=== PATIENT | male | born 1945 | race Caucasian/White ===

== ENCOUNTER 2019-01-24 10:28 | Emergency (ER) | payer OTHER ==
[2019-01-24] MEDS ORDERED: Bupivacaine 0.5% 10 ML SDV INJECT ONE (11:30)
[2019-01-24] MEDS ORDERED: Triamcinolone Acetonide 40 MG/ML 1 ML MDV INJECT ONE (11:30)
--- NOTE | 2019-01-24 11:40 | EDM.PDOC ---
ED HPI GENERAL MEDICAL PROBLEM - General Chief Complaint: Lower Extremity Injury/Pain Stated Complaint: BACK & HIP PAIN RIGHT SIDE Time Seen by Provider: 01/24/19 11:00 Source of Information: Reports: Patient, Family History Limitations: Reports: No Limitations - History of Present Illness INITIAL COMMENTS - FREE TEXT/NARRATIVE: 73-year-old male with right hip and right buttock pain for the past 7-10 days. He was seen by orthopedics in the clinic, an x-ray taken in an order for physical therapy done which she has not started. He is also on a course of Medrol Dosepak. This has helped in the past but is not helping, this morning his had to help him get his pants on and he is miserable. Onset: Gradual Duration: Day(s): (7-10 days) Location: Reports: Lower Extremity, Right Quality: Reports: Sharp, Stabbing Worsens with: Reports: Other (Much worse with movement, lying on his right side or getting up from a sitting position), Movement Right Hip Pain Score (Numeric/FACES): 5 - Related Data Allergies Allergy/AdvReac Type Severity Reaction Status Date / Time No Known Allergies Allergy Verified 01/24/19 10:54 Home Meds: Home Meds Levothyroxine 75 mcg PO ACBREAKFAST 01/24/19 [History] methylPREDNISolone [Methylprednisolone] 16 mg PO DAILY 01/24/19 [History] traZODone 150 mg PO BEDTIME 01/24/19 [History] Past Medical History HEENT History: Reports: Impaired Vision Gastrointestinal History: Reports: None Musculoskeletal History: Reports: Arthritis Endocrine/Metabolic History: Reports: Hypothyroidism, Obesity/BMI 30+ - Past Surgical History Head Surgeries/Procedures: Reports: None HEENT Surgical History: Reports: Cataract Surgery GI Surgical History: Reports: Cholecystectomy Endocrine Surgical History: Reports: None Musculoskeletal Surgical History: Reports: Knee Replacement Dermatological Surgical History: Reports: None Social & Family History - Tobacco Use Smoking Status *Q: Never Smoker Second Hand Smoke Exposure: No - Caffeine Use Caffeine Use: Reports: Coffee, Soda - Alcohol Use Days Per Week of Alcohol Use: 3 Number of Drinks Per Day: 2 Total Drinks Per Week: 6 - Recreational Drug Use Recreational Drug Use: No Review of Systems - Review of Systems Review Of Systems: See Below Constitutional: Denies: Fever Respiratory: Reports: No Symptoms Cardiovascular: Reports: No Symptoms GI/Abdominal: Reports: No Symptoms Skin: Denies: Rash, Erythema Neurological: Denies: Paresthesia ED EXAM, GENERAL - Physical Exam Exam: See Below Exam Limited By: No Limitations General Appearance: Alert, No Apparent Distress, Other (Very uncomfortable with movement, unable to sit down) Respiratory/Chest: No Respiratory Distress, Lungs Clear Extremities: Other (Extremely tender to palpation over the greater trochanteric area and into the distal buttock just proximal to the greater trochanteric bursa ) Course - Vital Signs Last Recorded V/S: Last Vital Signs Temp 97.6 F 01/24/19 10:55 Pulse 67 01/24/19 10:55 Resp 17 01/24/19 10:55 BP 155/77 H 01/24/19 10:55 Pulse Ox 99 01/24/19 10:55 - Orders/Labs/Meds Meds: Medications Discontinued Medications Generic Name Dose Route Start Last Admin Trade Name Marty PRN Reason Stop Dose Admin Bupivacaine HCl 10 ml 01/24/19 11:30 01/24/19 11:21 Sensorcaine-Mpf 0.5% INJECT 01/24/19 11:31 10 ml ONETIME ONE Administration Triamcinolone Acetonide 40 mg 01/24/19 11:30 01/24/19 11:21 Kenalog-40 INJECT 01/24/19 11:31 40 mg ONETIME ONE Administration - Re-Assessments/Exams Free Text/Narrative Re-Assessment/Exam: 01/24/19 11:37 The area was sterilized with Betadine, and 10 mL of 0.5% Marcaine and 40 mg of Kenalog was infiltrated into the bursa and just proximal to the bursa. His symptoms were markedly improved, he was able to stand move sit with minimal symptoms. He was given 10 hydrocodone for extra pain control as he will have a window of pain after the numbing medicine wears off, and if there is not significant relief from the steroid over the next several days he will recheck with orthopedics and go to physical therapy on Friday as planned. Departure - Departure Time of Disposition: 11:45 Disposition: Home, Self-Care 01 Clinical Impression: Trochanteric bursitis of right hip - Discharge Information Instructions: Trochanteric Bursitis Referrals: PCP,None [Primary Care Provider] - Forms: ED Department Discharge Care Plan Goals: Continue with steroids, activity as tolerated, and recheck in 3-4 days if not improving satisfactorily or keep your physical therapy appointment. Hydrocodone for breakthrough pain if needed.
== END 2019-01-24 11:45 | disposition home or self-care (01) ==
LOC: JP.ED 10:28
DX: M70.61 Trochanteric bursitis, right hip (principal); E03.9 Hypothyroidism, unspecified; M19.90 Unspecified osteoarthritis, unspecified site; E66.9 Obesity, unspecified; Z90.49 Acquired absence of other specified parts of digestive tract; Z98.49 Cataract extraction status, unspecified eye; Z79.899 Other long term (current) drug therapy
CPT/HCPCS: 20610; 99283; J3301; J3490

== ENCOUNTER 2020-05-30 12:14 | Emergency (ER) | payer OTHER ==
--- NOTE | 2020-05-30 14:29 | EDM.PDOC ---
ED HPI GENERAL MEDICAL PROBLEM - General Chief Complaint: Lower Extremity Injury/Pain Stated Complaint: CAST TOO TIGHT, SPLIT CAST Time Seen by Provider: 05/30/20 14:00 Source of Information: Reports: Patient, Family History Limitations: Reports: No Limitations - History of Present Illness INITIAL COMMENTS - FREE TEXT/NARRATIVE: 75-year-old male has a cast in his lower left extremity since surgery last Friday. It is making him anxious and he thinks it is too tight. They called the surgeon and he was okay with his cast being loose and slipped slightly. He can feel his toes, he just feels very anxious and claustrophobic with it on. Onset: Sudden (Woke up after surgery on Friday with the cast on, has been having problems ever since) - Related Data Allergies Allergy/AdvReac Type Severity Reaction Status Date / Time No Known Allergies Allergy Verified 05/30/20 13:19 Home Meds: Home Meds Levothyroxine 75 mcg PO ACBREAKFAST 01/24/19 [History] traZODone 150 mg PO BEDTIME 01/24/19 [History] Acetaminophen [Tylenol Extra Strength] 1,000 mg PO ASDIRECTED 05/30/20 [History] Celecoxib [CeleBREX] 50 mg PO BID 05/30/20 [History] LORazepam [Ativan] 0.5 mg PO ASDIRECTED 05/30/20 [History] oxyCODONE 1 tab PO ASDIRECTED 05/30/20 [History] Past Medical History HEENT History: Reports: Impaired Vision Gastrointestinal History: Reports: None Musculoskeletal History: Reports: Arthritis Endocrine/Metabolic History: Reports: Hypothyroidism, Obesity/BMI 30+ - Past Surgical History Head Surgeries/Procedures: Reports: None HEENT Surgical History: Reports: Cataract Surgery GI Surgical History: Reports: Cholecystectomy Endocrine Surgical History: Reports: None Musculoskeletal Surgical History: Reports: Knee Replacement, Other (See Below) Other Musculoskeletal Surgeries/Procedures:: left ankle surgery Dermatological Surgical History: Reports: None Social & Family History - Tobacco Use Tobacco Use Status *Q: Never Tobacco User Second Hand Smoke Exposure: No - Caffeine Use Caffeine Use: Reports: Coffee, Soda - Recreational Drug Use Recreational Drug Use: No Review of Systems - Review of Systems Review Of Systems: See Below Constitutional: Denies: Fever Respiratory: Denies: Shortness of Breath Cardiovascular: Denies: Chest Pain Musculoskeletal: Denies: Neck Pain Skin: Denies: Bruising Neurological: Denies: Dizziness Psychiatric: Reports: Anxiety ED EXAM, GENERAL - Physical Exam Exam: See Below Exam Limited By: No Limitations General Appearance: Alert, No Apparent Distress, Anxious Respiratory/Chest: No Respiratory Distress, Lungs Clear Cardiovascular: Regular Rate, Rhythm Extremities: Other (There is a cast on the left lower extremity from the base of the toes to just under the knee. There is some blood soaked into the heel of the cast but according to the family this was present since his discharge. Toes have good capillary refill and color) Skin Exam: Warm, Dry Course - Vital Signs Last Recorded V/S: Last Vital Signs Temp 97.9 F 05/30/20 13:21 Pulse 72 05/30/20 13:21 Resp 16 05/30/20 13:21 BP 146/83 H 05/30/20 13:21 Pulse Ox 99 05/30/20 13:21 - Re-Assessments/Exams Free Text/Narrative Re-Assessment/Exam: 05/30/20 14:27 Using a cast cutter a split was made on each side of the cast and it was loosened about a quarter of an inch. 2 Roddy wraps were wrapped around the cast, he did think it felt better. He was given 6 hydrocodone's for pain control, she will not give him the oxycodone because it makes him itch too much. Departure - Departure Time of Disposition: 14:33 Disposition: Home, Self-Care 01 Clinical Impression: Problem with fiberglass cast - Discharge Information Instructions: Cast or Splint Care, Adult, [id number] Referrals: PCP,None [Primary Care Provider] - Forms: ED Department Discharge Care Plan Goals: Recheck as scheduled, return sooner if continued problems with the cast. Elevating the leg may be helpful. Sepsis Event Note (ED) - Evaluation Sepsis Screening Result: No Definite Risk - Focused Exam Vital Signs: Vital Signs Temp Pulse Resp BP Pulse Ox 05/30/20 13:21 97.9 F 72 16 146/83 H 99 05/30/20 13:03 97.9 F 72 16 146/83 H 99
== END 2020-05-30 14:33 | disposition home or self-care (01) ==
LOC: JP.ED 12:14
DX: Z46.89 Encounter for fitting and adjustment of other specified devices (principal); E03.9 Hypothyroidism, unspecified; E66.9 Obesity, unspecified; Z68.28 Body mass index [BMI] 28.0-28.9, adult
CPT/HCPCS: 99282

== ENCOUNTER 2020-08-30 19:31 | Emergency (ER) | payer OTHER ==
--- NOTE | 2020-08-30 21:07 | EDM.PDOC ---
ED HPI GENERAL MEDICAL PROBLEM - General Chief Complaint: General Stated Complaint: INFECTION ON HIS LEFT FOOT Time Seen by Provider: 08/30/20 20:55 Source of Information: Reports: Patient, Family, RN Notes Reviewed History Limitations: Reports: No Limitations - History of Present Illness INITIAL COMMENTS - FREE TEXT/NARRATIVE: 75-year-old gentleman presents emergency department today for evaluation of his chronic wound. He has been dealing with a chronic wound on his left foot both heel and dorsal surface of the foot for approximately 3 months has gone through multiple surgeries wound VAC care PICC line placement is currently on oral antibiotics of amoxicillin and Ceftin on follows with infectious disease specialist he does have follow-up appointment next Friday he is also set up to see Dr. June from wound care next week as well. He was evaluated by his home care nurse today who felt the wound was infected and needed to be evaluated. He denies any fevers has not noticed any significant change other than he has started walking more and using the foot with his walker system Left Foot Pain Score (Numeric/FACES): 4 - Related Data Allergies Allergy/AdvReac Type Severity Reaction Status Date / Time oxycodone Allergy Fainting Verified 08/30/20 20:20 Home Meds: Home Meds Levothyroxine 75 mcg PO ACBREAKFAST 01/24/19 [History] traZODone 150 mg PO BEDTIME 01/24/19 [History] Amoxicillin/Potassium Clav [Amox-Clav 875-125 mg Tablet] 1 tab PO BID 08/30/20 [History] Cefdinir 300 mg PO BID 08/30/20 [History] DULoxetine [Cymbalta] 30 mg PO DAILY 08/30/20 [History] Gabapentin [Neurontin] 100 mg PO ASDIRECTED 08/30/20 [History] Past Medical History HEENT History: Reports: Allergic Rhinitis, Cataract, Impaired Vision, Otitis Media Respiratory History: Reports: Sleep Apnea Genitourinary History: Reports: Renal Calculus Musculoskeletal History: Reports: Arthritis, Back Pain, Chronic Psychiatric History: Reports: Anxiety Endocrine/Metabolic History: Reports: Hypothyroidism, Obesity/BMI 30+ Oncologic (Cancer) History: Reports: Other (See Below) Other Oncologic History: skin cancer Dermatologic History: Reports: Other (See Below) 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 - Infectious Disease History Infectious Disease History: Reports: Mumps, Shingles - Past Surgical History Head Surgeries/Procedures: Reports: None HEENT Surgical History: Reports: Cataract Surgery, Myringotomy w Tube(s), Naso- Sinus Surgery GI Surgical History: Reports: Cholecystectomy Endocrine Surgical History: Reports: None Musculoskeletal Surgical History: Reports: Knee Replacement, Other (See Below) Other Musculoskeletal Surgeries/Procedures:: left ankle surgery Dermatological Surgical History: Reports: None Social & Family History - Tobacco Use Tobacco Use Status *Q: Never Tobacco User - Caffeine Use Caffeine Use: Reports: Coffee, Soda - Alcohol Use Days Per Week of Alcohol Use: 3 Number of Drinks Per Day: 2 Total Drinks Per Week: 6 - Recreational Drug Use Recreational Drug Use: No ED ROS GENERAL - Review of Systems Review Of Systems: See Below Constitutional: Reports: No Symptoms HEENT: Reports: No Symptoms Respiratory: Reports: No Symptoms Cardiovascular: Reports: No Symptoms GI/Abdominal: Reports: No Symptoms (Andra is very manipulative) : Reports: No Symptoms Musculoskeletal: Reports: No Symptoms Skin: Reports: Wound ED EXAM, GENERAL - Physical Exam Exam: See Below Free Text/Narrative:: Examination left foot does have 2 chronic wounds 1 is approximately 2 cm in length there is some granulation around the wound the wound is approximately 4 mm deep mild amount erythema around the wound I do not appreciate any significant infection this is on the dorsal surface. The other wound on the heel is 2 open wounds 1 is about a centimeter in size it is very superficial just starting to break through the dermis the other one is deeper approximately 2 mm also some granulation arrival and on appreciate any significant drainage there is no purulent discharge pedal pulses +1 sensation is intact and appreciate any red streaking up the leg Exam Limited By: No Limitations General Appearance: Alert, WD/WN, No Apparent Distress Peripheral Pulses: 1+: Dorsalis Pedis (L) Course - Vital Signs Last Recorded V/S: Last Vital Signs Temp 98.7 F 08/30/20 20:28 Pulse 77 08/30/20 20:28 Resp 16 08/30/20 20:28 BP 144/60 H 08/30/20 20:28 Pulse Ox 98 08/30/20 20:28 - Orders/Labs/Meds Labs: Laboratory Tests 08/30/20 08/30/20 08/30/20 Range/Units 21:19 21:19 21:19 WBC 7.1 (4.5-11.0) K/uL RBC 4.59 (4.30-5.90) M/uL Hgb 13.7 (12.0-15.0) g/dL Hct 43.0 (40.0-54.0) % MCV 94 (80-98) fL MCH 30 (27-31) pg MCHC 32 (32-36) % Plt Count 158 (150-400) K/uL Neut % (Auto) 56 (36-66) % Lymph % (Auto) 30 (24-44) % Cecil % (Auto) 8 H (2-6) % Eos % (Auto) 5 H (2-4) % Baso % (Auto) 1 (0-1) % Sodium 139 L (140-148) mmol/L Potassium 4.5 (3.6-5.2) mmol/L Chloride 104 (100-108) mmol/L Carbon Dioxide 31 (21-32) mmol/L Anion Gap 8.5 (5.0-14.0) mmol/L BUN 22 H (7-18) mg/dL Creatinine 1.0 (0.8-1.3) mg/dL Est Cr Clr Drug Dosing 66.93 mL/min Estimated GFR (MDRD) > 60 (>60) Glucose 83 (74-106) mg/dL Lactic Acid 1.0 (0.4-2.0) mmol/L Calcium 9.2 (8.5-10.1) mg/dL Total Bilirubin 0.2 (0.2-1.0) mg/dL AST 24 (15-37) U/L ALT 41 (12-78) U/L Alkaline Phosphatase 90 (46-116) U/L C-Reactive Protein 1.07 H (0.0-0.3) mg/dL Total Protein 6.9 (6.4-8.2) g/dL Albumin 3.1 L (3.4-5.0) g/dL Globulin 3.8 H (2.3-3.5) g/dL Albumin/Globulin Ratio 0.8 L (1.2-2.2) Departure - Departure Time of Disposition: 22:08 Disposition: Home, Self-Care 01 Condition: Fair Clinical Impression: Chronic wound of extremity, Chronic wound - Discharge Information Instructions: Wound Care, Adult Referrals: PCP,None [Primary Care Provider] - Forms: ED Department Discharge Additional Instructions: Continue taking your current antibiotics, keep your follow-up appointment with infectious disease and follow-up with Dr. June in wound care when available, call or return to the emergency department worsening of symptoms Sepsis Event Note (ED) - Evaluation Sepsis Screening Result: No Definite Risk - Focused Exam Vital Signs: Vital Signs Temp Pulse Resp BP Pulse Ox 08/30/20 20:28 98.7 F 77 16 144/60 H 98 08/30/20 19:54 98.7 F 77 16 144/60 H 98 - Assessment/Plan Plan: Assessment Acuity = chronic Site and laterality = wound left foot Etiology = unknown Manifestations = none Location of injury = Home Lab values = CBC, CMP, lactic acid all within normal limits CRP slightly elevated 1.07 Plan I did review lab work with him recommended staying the course of his current antibiotics keep his follow-up appointment with infectious disease on Friday and recommend follow-up with wound care This note was dictated using [employer] voice recognition software please call with any questions on syntax or grammar.
== END 2020-08-30 22:16 | disposition home or self-care (01) ==
LOC: JP.ED 19:31
DX: S91.302A Unspecified open wound, left foot, initial encounter (principal); E03.9 Hypothyroidism, unspecified; E66.9 Obesity, unspecified; Z68.27 Body mass index [BMI] 27.0-27.9, adult; Z88.5 Allergy status to narcotic agent; Z79.899 Other long term (current) drug therapy; X58.XXXA Exposure to other specified factors, initial encounter
CPT/HCPCS: 36415; 80053; 83605; 85025; 86140; 99283